=== PATIENT | female | born 1980 | race African-American/Black ===

== ENCOUNTER 2018-11-04 05:29 | Day surgery (SDC) | payer OTHER ==
[2018-11-04] VITALS (20 sets, daily range): BP systolic 81–121; BP diastolic 40–62; PULSE 58–86; RESP 15–21; Ht 162.6 cm; Wt 109.9 kg
[~2018-11-04] VITALS: Ht 162.6 cm; Wt 109.9 kg
[2018-11-04] MEDS ORDERED: SYMB80120 INHALATION (06:19)
[2018-11-04] MEDS ORDERED: LACTATED RINGER'S 1,000 ML IV SCH (06:30)
--- NOTE | 2018-11-04 06:48 | PREAC ---
Date/Time of Note Date/Time of Note DATE: 11/04/18 TIME: 06:46 Anesthesia Eval and Record Evaluation Time Pre-Procedure Interview DATE: 11/04/18 TIME: 06:46 Age 38 Sex female NPO: 8 hrs Preoperative diagnosis right ankle sprain Planned procedure right ankle arthroscopy, debridement and subtalar Past Medical History Past Medical History: Includes Pulm: Asthma Surgery & Anesthesia Issues No known issue Meds Anticoagulation: No Beta John within 24 hr: No Reason Beta John not given: Pt. not on B-John Reported Medications Budesonide-Formoterol Fumarate* (Symbicort*) 80-4.5 Inha, 1 PUFFS INHALATION DAILY, #1 EACH 11/04/18 Current Medications Lactated Ringer's 1,000 ml @ 30 mls/hr Q24H IV Last administered on 11/04/18at 06:31; Admin Dose 30 MLS/HR; Start 11/04/18 at 06:30 Meds reviewed: Yes Allergies Coded Allergies: No Known Drug Allergies (Verified Allergy, Unknown, 11/04/18) Allergies Reviewed: Yes Labs/Studies Labs Reviewed: Reviewed by anesthesiologist test: Negative Pre-procedure Exam Last vitals Vital Signs Date Temp Pulse Resp B/P (MAP) Pulse Ox O2 O2 Flow FiO2 Time Delivery Rate 11/04/18 98.1 76 16 114/59 97 Room Air 06:05 (77) Airway: Adequate mouth opening, Adequate thyromental dist Mallampati: Mallampati II Teeth: Normal Lung: Normal Heart: Normal ASA Physical Status ASA physical status: 2 Emergency: None Planned Anesthetic General/MAC: LMA Nerve block: Sciatic (right) Planned Pain Management Single shot nerve block, Parenteral pain med Pre-operative Attestations Prior to commencing anesthesia and surgery, the patient was re-evaluated, there was verification of: *The patient's identity *The results of appropriate recent lab work and preoperative vital signs *The above evaluation not changing prior to induction *Anesthetic plan, risk benefits, alternative and complications discussed with patient/family; questions answered; patient/family understands, accepts and wishes to proceed. ALISHA STILL Nov 04, 2018 06:48
[2018-11-04] MEDS ORDERED: ROPIVACAINE 0.5 % 30 ML VIAL ONE (06:50)
[2018-11-04] MEDS ORDERED: MIDAZOLAM 1 MG/ML 2 ML INJ ONE (06:52)
[2018-11-04] MEDS ORDERED: POVIDONE IODINE 10% 28.4 GM OINT ONE (06:53)
[2018-11-04] MEDS ORDERED: BUPIVACAINE 0.5% (SDV) 30 ML INJ ONE (06:54)
[2018-11-04] MEDS ORDERED: PROPOFOL 200 MG INJ ONE (07:00)
[2018-11-04] MEDS ORDERED: ROCURONIUM 50 MG INJ ONE (07:00)
[2018-11-04] MEDS ORDERED: SEVOFLURANE 15 MIN ONE (07:00)
[2018-11-04] MEDS ORDERED: LIDOCAINE 2% (SDV) 5 ML INJ ONE (07:00)
[2018-11-04] MEDS ORDERED: ONDANSETRON 4 MG INJ ONE (07:33)
[2018-11-04] MEDS ORDERED: DEXAMETHASONE 4 MG/ML 5 ML INJ ONE (07:33)
[2018-11-04] MEDS ORDERED: CEFAZOLIN 1 GM INJ ONE (09:08)
[2018-11-04] MEDS ORDERED: SUGAMMADEX SODIUM 200 MG/2 ML VIAL IV ONE (09:09)
--- NOTE | 2018-11-04 09:41 | PAC ---
Date/Time of Note Date/Time of Note DATE: 11/04/18 TIME: 09:41 Post-Anesthesia Notes Post-Anesthesia Note Last documented vital signs Vital Signs Date Temp Pulse Resp B/P (MAP) Pulse Ox O2 O2 Flow FiO2 Time Delivery Rate 11/04/18 98.1 76 16 114/59 97 Room Air 0941 (77) Activity: WNL Respiratory function: WNL Cardiovascular function: WNL Mental status: Baseline Pain reasonably controlled: Yes Hydration appropriate: Yes Nausea/Vomiting absent: Yes ALISHA STILL Nov 04, 2018 09:41
[2018-11-04] MEDS ORDERED: SOD CHLORIDE 0.9% 1,000 ML IV SCH (09:58)
[2018-11-04] MEDS ORDERED: FENTAnyl 50 MCG/ML VIAL IV PRN ×3 (10:00)
[2018-11-04] MEDS ORDERED: MIDAZOLAM 1 MG/ML 2 ML INJ IV PRN (10:00)
[2018-11-04] MEDS ORDERED: DIPHENHYDRAMINE 50 MG INJ IV PRN (10:00)
[2018-11-04] MEDS ORDERED: KETOROLAC 30 MG INJ IV PRN (10:00)
[2018-11-04] MEDS ORDERED: LABETALOL HCL 20MG INJ IV PRN (10:00)
[2018-11-04] MEDS ORDERED: EPHEDrine SULFATE 50 MG/5 ML SYG IV PRN (10:00)
[2018-11-04] MEDS ORDERED: MEPERIDINE 25 MG INJ IV PRN (10:00)
[2018-11-04] MEDS ORDERED: METOCLOPRAMIDE 10 MG INJ IV PRN (10:00)
[2018-11-04] MEDS ORDERED: ONDANSETRON 4 MG INJ IV PRN ×2 (10:00)
[2018-11-04] MEDS ORDERED: ALBUTEROL 0.083% (NEB) 2.5 MG/3 ML AMP HHN PRN (10:00)
[2018-11-04] MEDS ORDERED: morphine 2 MG INJ IV PRN (10:00)
[2018-11-04] MEDS ORDERED: hydrALAzine 20 MG INJ IV PRN (10:00)
[2018-11-04] MEDS ORDERED: OXYCODONE/ACETAMINOPHEN (5/325) TAB PO PRN ×4 (10:00)
[2018-11-04] MEDS ORDERED: HYDROmorphONE 1 MG/5 ML IV SYRINGE IV PRN ×3 (10:00)
--- NOTE | 2018-11-04 10:00 | OPPN ---
Date/Time of Note Date/Time of Note DATE: 11/04/18 TIME: 09:59 Operative Report Preoperative Diagnosis Right ankle synovitis , subtalar joint synovitis Postoperative Diagnosis see above Operation/Procedure Performed arthroscopy of the right ankle and subtalar joint with extensive debridement Surgeon see signature line digital sales assistant Joie Theodore PA-C Anesthesia: general Estimated blood loss: minimal Transfusion Required none Specimen none Grafts/Implants none Complications none HEATHER RUELAS MD Nov 04, 2018 10:00
--- NOTE | 2018-11-04 10:52 | OPR ---
DATE OF OPERATION: 11/04/2018 PREOPERATIVE DIAGNOSES: 1. Soft tissue impingement of the right ankle. 2. Sinus tarsi fibrosis. POSTOPERATIVE DIAGNOSES: 1. Soft tissue impingement of the right ankle. 2. Scarring adhesions. 3. 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 4. Synovitis of the subtalar joint. OPERATION PERFORMED: 1. Arthroscopy, right ankle, with soft tissue distraction. 2. Extensive debridement of the ankle. 3. Arthroscopy of the right subtalar joint with soft tissue distraction. 4. Extensive debridement of subtalar joint. 5. Short-leg splint. FULLING MACHINE OPERATOR: Ami Franco ANESTHESIA: General with popliteal block. TOURNIQUET TIME: 57 minutes. DESCRIPTION OF PROCEDURE: The patient taken to the operating room and placed in supine position. Sa tisfactory popliteal block was given. Satisfactory general anesthesia was administered, 2 grams Ance f intravenously. The right thigh secured in the thigh hale and carefully padded. The right leg wa s prepped and draped in usual manner. Superficial peroneal nerve was marked out. Soft tissue distra ction was applied after the tourniquet was inflated to 250 mmHg. Standard anterior lateral central a nd posterolateral portals were used in the subtalar joint. There was a lot of fibrosis and scarring. The sinus tarsi and interosseous ligament had fraying, but otherwise intact. The retinacular ligam ents had scarring and fraying. The talocalcaneal articulation had minimal chondromalacia laterally. Since it was smoothed centrally, anteriorly and posteriorly. Calcaneofibular ligament was intact. There was scarring along the posterior subtalar joint with the articular surface looked intact. Shav er was inserted. The sinus tarsi was debrided. The extensor retinaculum was debrided as well as the interosseous ligament. Synovitis was excised. Calcaneofibular ligament was intact and palpated. T he posterior subtalar joint was debrided all the way to the posteromedial corner. After complete maria m ridement our attention was turned to the ankle. Standard anteromedial, anterolateral, and posterior portals were used, using extreme caution to avoid injuring neurovascular structures. There was some scarring and fibrosis along the medial malleolar talar articulation. The remaining deltoid ligament was intact since the medial corner was intact landon tral overhang had some mild fraying and scarring. The syndesmotic ligament was abrading with an acce ssory fascicle along the anterior aspect of the talus. There was scarring along the lateral gutter, but the anterior talofibular otherwise looked intact. Minimal scarring anteriorly. Centrally was sm ooth and glistening as was posteriorly on the tibia and the talus. There was hemorrhagic synovial no dule, but the ligaments posteriorly were intact. Shaver was inserted. The medial gutter was debride d. The front of the ankle was debrided. Suction basket was inserted and the accessory fascicle of t he syndesmotic ligament was cut back so it was no longer abrading the lateral talar dome. Lateral gu tter was debrided. Hemorrhagic synovial nodule was excised with a shaver and the posterior gutter wa s debrided. After complete debridement, the ankle was irrigated clear. Wounds closed with 4-0 black nylon. Compression dressing applied as well as a posterior splint in neutral position. At the end of procedure sponge, needle count was correct. The patient tolerated procedure well and taken to rec overy room. FULLING MACHINE OPERATOR ORTHOPEDIC SURGEON: During the procedure, an drug safety assistant orthopedic surgeon was used at [facility]. The drug safety assistant helped with distraction with manipulating the arthroscope and manipulating the patient without a skilled this have not been possible and should be compensated appropriately. Dictated By: HEATHER RUELAS MD RF/NTS Conf#: [id number] DID#: [id number] CC: HEATHER RUELAS MD;*EndCC*
== END 2018-11-04 14:40 | disposition home or self-care (01) ==
LOC: SDS 05:29
PROVIDERS: ATTEND Orthopaedic Surgery
DX: M25.871 Other specified joint disorders, right ankle and foot (principal); L90.5 Scar conditions and fibrosis of skin; M65.871 Other synovitis and tenosynovitis, right ankle and foot; J45.909 Unspecified asthma, uncomplicated
CPT/HCPCS: 29898; J0690; J1100; J1170; J2175; J2250; J2405; J2765; J2795; J3010